=== PATIENT | male | born 1970 | race Caucasian/White ===

== ENCOUNTER 2019-10-25 05:10 | Emergency (ER) | payer BC ==
[2019-10-25] MEDS ORDERED: DIAZEPAM 5 MG TABLET PO ONE (05:33)
--- NOTE | 2019-10-25 05:38 | Emergency Department Record ---
History of Present Illness - General Chief complaint: Extremity Problem Stated complaint: NECK/ARM PAIN Time Seen by Provider: 10/25/19 05:33 Source: Patient, Family () Mode of Arrival: Ambulatory Limitations: No limitations - History of Present Illness Initial comments: 49 yr old male from home with by car for pains to the left shoulder into l eft hand. Present for two days but worse tonight. Pt states he has had no trauma or injury. He has pains in the left side of his neck into the upper shoulder and radiating into the left hand. He is right hand dominate. Has been taking Excedrin aspirin without relief. Tonight in bed he "found a comfortable position" propped up with pillows but he states he extended his head to reposition and felt a sudden "spasm of pain and it lit me up"! Pains acutely worse. Pt relates he is unable to turn his head to the left but fully able to look to the right. No Hx of similar. No CP, MEHRDAD, Diaphoresis. No cardiac history. On Metformin for metabolic syndrome. Onset/Timin -: Days(s) Location: Left, Arm History of Same: No Radiation: None Severity scale (1-10): 7 Consistency: Intermittent Improves with: Nothing Worsens with: Nothing Associated Symptoms: Arthralgias - Related Data Home Medications Medication Instructions Recorded Confirmed Last Taken Allopurinol 100 mg PO 10/25/19 10/25/19 Unknown Metformin HCl 500 mg PO 10/25/19 Unknown Tadalafil [Cialis] 5 mg PO 10/25/19 Unknown Previous Rx's Medication Instructions Recorded Diazepam 5 mg PO Q6HR PRN 3 Days #10 tablet 10/25/19 Allergies Allergy/AdvReac Type Severity Reaction Status Date / Time No Known Drug Allergies Allergy Verified 10/25/19 05:31 Travel Screening - Travel/Exposure Within Last 30 Days Have you traveled within the last 30 days?: No - Travel/Exposure Within Last Year Have you traveled outside the [place] in the last year?: No - Additonal Travel Details Have you been exposed to anyone with a communicable illness?: No Review of Systems Constitutional: Denies: Chills, Fever Eyes: Denies: Eye discharge ENT: Denies: Congestion Respiratory: Denies: Cough, Dyspnea Cardiovascular: Denies: Arrhythmia, Chest pain, Palpitations, Syncope Endocrine: Denies: Fatigue Gastrointestinal: Denies: Abdominal pain, Nausea, Vomiting Musculoskeletal: Reports: As per HPI Skin: Denies: Rash Neurological: Denies: Headache, Seizure, Tingling Psychiatric: Denies: Anxiety Hematological/Lymphatic: Denies: Anemia Past Medical History - SOCIAL HISTORY Smoking Status: Current every day smoker - RESPIRATORY Hx Respiratory Disorders: No - CARDIOVASCULAR Hx Cardio Disorders: No - NEURO Hx Neuro Disorders: No - GI Hx GI Disorders: No - Hx Genitourinary Disorders: No - ENDOCRINE Hx Endocrine Disorders: No - MUSCULOSKELETAL Hx Musculoskeletal Disorders: No - PSYCH Hx Psych Problems: No - HEMATOLOGY/ONCOLOGY Hx Hematology/Oncology Disorders: No Family Medical History Any Significant Family History?: No Hx Heart Disease: Grandparents Hx HTN: Grandparents Physical Exam - General General Appearance: Alert, Oriented x3, Cooperative, Moderate distress Limitations: No limitations - Head Head exam: Atraumatic - Eye Eye exam: Normal appearance, PERRL - ENT ENT exam: Mucous membranes moist, Normal orophraynx Ear exam: Normal external inspection Nasal Exam: Normal inspection - Neck Neck exam: Tenderness (Pt with upper trap muscle spasm on the left. No spinous tenderness to palp. No skin lesions. ROM limited in rotation to the left and side bending to the left. ) - Respiratory Respiratory exam: Normal lung sounds bilaterally. negative: Respiratory distress - Cardiovascular Cardiovascular Exam: Regular rate, Normal rhythm. negative: Tachycardia - GI/Abdominal GI/Abdominal exam: Soft, Normal bowel sounds. negative: Guarding, Tenderness - Extremities Extremities exam: Normal inspection, Full ROM, Normal capillary refill. negative: Tenderness - Back Back exam: Reports: Tenderness (as noter in the upper thoracic and lower cervial area. ) - Neurological Neurological exam: Alert, Normal gait, Oriented X3. negative: Motor sensory deficit - Psychiatric Psychiatric exam: Normal affect, Normal mood - Skin Skin exam: Normal color. negative: Rash Course Vital Signs 10/25/19 05:14 Temperature 97.8 F Pulse Rate [ 69 Pulse Ox Probe] Respiratory 20 Rate Blood Pressure 180/83 [Left Arm] Pulse Ox 97 - Reevaluation(s) Reevaluation #1: 10/25/19 05:45 Pt seen with spasm of the left trap muscles and associated decreased ROM. Pressure to the left supraspinatous Muscle give immediate pain then releases the spasm and decreases the pain and radiation of pain. His ROM is improved. We had a long discussion regarding cardiac risks and he denies CP or MEHRDAD. Thiswas sudden onset and is positional in nature. He does see a Chiropractor on a regular basis and is able to see him in the AM. will drive tonight. Given Valium for muscle relaxer in ED. Home with and follow up as discussed. Disposition Disposition: Discharge Clinical Impression: Torticollis, spasmodic Disposition: Home, Self-Care Condition: (1) Good Instructions: Spasmodic Torticollis (ED) Additional Instructions: See you chiropractor in AM. Local heat or ice as needed. Take your meds as instructed. Valium for muscle spasm. DO NOT drive with meds. Family Doctor in 3-5 days Return to the ED as needed. Prescriptions: Diazepam 5 mg PO Q6HR PRN 3 Days #10 tablet PRN Reason: Muscle Spasms Forms: Patient Portal Access Time of Disposition: 05:37 Quality - Quality Measures Quality Measures: N/A - Blood Pressure Screening Does Patient Have Any of the Following: No Blood Pressure Classification: Pre-Hypertensive BP Reading Systolic Measurement: 180 Diastolic Measurement: 83 Screening for High Blood Pressure: < Pre-Hypertensive BP, F/U Documented > [[id number]] Pre-Hypertensive Follow-up Interventions: Follow-up with rescreen every year.
== END 2019-10-25 05:48 | disposition home or self-care (01) ==
LOC: ER 05:10
DX: G24.3 Spasmodic torticollis (principal); M25.512 Pain in left shoulder; F17.210 Nicotine dependence, cigarettes, uncomplicated
CPT/HCPCS: 99283 ×2; J3490